=== PATIENT | male | born 1965 | race African-American/Black ===

== ENCOUNTER 2016-09-21 20:05 | Emergency (ER) | payer MEDICAID ==
[~2016-09-21] VITALS: Ht 172.7 cm; Wt 68.0 kg
[~2016-09-21 20:05] MED LIST: IBUP-1509 PO; LISI-604 PO; OMEP20TA80 PO
[2016-09-21 20:32] VITALS: BP 136/77
== END 2016-09-22 03:43 | disposition left against medical advice (07) ==
LOC: ER 20:05
DX: Z53.21 Procedure and treatment not carried out due to patient leaving prior to being seen by health care provider (principal)

== ENCOUNTER 2016-09-27 02:51 | Emergency (ER) | payer OTHER, MEDICAID ==
[~2016-09-27] VITALS: Ht 172.7 cm; Wt 68.0 kg
[2016-09-27 02:53] VITALS: BP 162/95
== END 2016-09-27 07:51 | disposition left against medical advice (07) ==
LOC: ER 02:51
DX: Z48.00 Encounter for change or removal of nonsurgical wound dressing (principal); Z53.21 Procedure and treatment not carried out due to patient leaving prior to being seen by health care provider

== ENCOUNTER 2018-02-08 02:03 | Emergency (ER) | payer OTHER, MEDICAID ==
[~2018-02-08] VITALS: Ht 172.7 cm; Wt 64.0 kg
[~2018-02-08 02:03] MED LIST changes: -IBUP-1509 PO; +IBUP-2028 PO; +OMEP20TA2 PO; -OMEP20TA80 PO
[2018-02-08 02:58] VITALS: BP 133/79
== END 2018-02-08 03:55 | disposition left against medical advice (07) ==
LOC: ER 02:03
DX: Z53.21 Procedure and treatment not carried out due to patient leaving prior to being seen by health care provider (principal); F17.200 Nicotine dependence, unspecified, uncomplicated; Z98.890 Other specified postprocedural states

== ENCOUNTER 2018-05-07 02:44 | Emergency (ER) | payer MEDICAID, OTHER ==
[~2018-05-07] VITALS: Ht 172.7 cm; Wt 68.0 kg
[2018-05-07] MEDS ORDERED: IBUPROFEN 600MG TABLET PO STA (04:49)
[2018-05-07 07:05] VITALS: BP 167/81
== END 2018-05-07 07:08 | disposition home or self-care (01) ==
LOC: ER 02:44
DX: S60.221A Contusion of right hand, initial encounter (principal); W22.01XA Walked into wall, initial encounter; Y93.84 Activity, sleeping; Y92.9 Unspecified place or not applicable
CPT/HCPCS: 73130; 99283

== ENCOUNTER 2022-10-21 13:45 | Emergency (ER) | payer OTHER ==
[~2022-10-21] VITALS: Ht 175.3 cm; Wt 79.0 kg
[~2022-10-21 13:45] MED LIST changes: -LISI-604 PO; +LISI20TA31 PO; -OMEP20TA2 PO; +OMEP20TA23 PO
[2022-10-21 13:52] VITALS: TEMP 98.6; O2SAT 98
[2022-10-21] MEDS ORDERED: KETOROLAC 60MG/2ML VIAL IM ONE (16:00)
[2022-10-21] MEDS ORDERED: IBUP-2029 MT (16:32)
[2022-10-21 16:54] VITALS: BP 123/80; PULSE 81; RESP 20
== END 2022-10-21 16:55 | disposition home or self-care (01) ==
LOC: ER 13:45
DX: M79.641 Pain in right hand (principal); Z88.0 Allergy status to penicillin
CPT/HCPCS: 99283; 73130; 96372; J1885